=== PATIENT | male | born 1980 | race Hispanic/Latino ===

== ENCOUNTER 2016-09-15 10:16 | Emergency (ER) | payer OTHER ==
[2016-09-15 10:35] VITALS: BP 130/92
--- NOTE | 2016-09-15 10:38 | Emergency Department Report ---
Entered by CHANO PAYNE, acting as scribe for RADHA GOLDSTEIN NP. Chief Complaint: Back Pain/Injury Stated Complaint: FALL/BACK/SHOULDER INJURY/PAIN Time Seen by Provider: 09/15/16 10:32 - HPI History of Present Illness: 36 y/o male presents 02/07, achy, sharp pain on righ shoulder/back after falling skateboarding about a week ago. Pt recieved x-ray at [facility] on left shoulder with normal results post accident. Denies SOB, head trauma. - ROS Review of Systems: -SOB - Exam Vital Signs: Vital Signs 09/15/16 10:32 Temperature 98.2 F Pulse Rate 71 Respiratory 18 Rate Blood Pressure 130/92 O2 Sat by Pulse 97 Oximetry Physical Exam: pt is alert and appropriate. pt does not have post midline C- spine tenderness + thoracic tenderness decrease rom to R shoulder MSE screening note: Focused history and physical exam performed. Due to findings the following was ordered: xr ED Disposition for MSE Condition: Stable This documentation as recorded by the scribe,CHANO PAYNE,accurately reflects the service I personally performed and the decisions made by ANGELITA rueda TRACY M, NP.
--- NOTE | 2016-09-15 11:18 | XRay Report ---
THORACIC SPINE: History: Back pain. The bones are normally mineralized with well preserved vertebral height, alignment and interspace distances. No paraspinal soft tissue widening is noted. IMPRESSION: Unremarkable thoracic spine.
--- NOTE | 2016-09-15 11:18 | XRay Report ---
RIGHT SHOULDER: History: Pain. Routine views demonstrate normal bony and soft tissue structures with normal joint alignment of the shoulder. IMPRESSION: Normal study.
--- NOTE | 2016-09-15 11:45 | Emergency Department Report ---
ED Back Pain/Injury HPI - General Chief Complaint: Fall Stated Complaint: FALL/BACK/SHOULDER INJURY/PAIN Time Seen by Provider: 09/15/16 10:32 Source: patient Limitations: No Limitations - History of Present Illness Initial Comments: This is a 36-year-old male that presents with back pain and radiates 9 out of 10. Patient describes pain as achy, sharp pain that radiates to his shoulder status post fall from skateboard and that occurred last week. Patient denies any trauma to head. He is complaining of severe neck pain. Patient stated is unable to move his neck while driving. Denies any loss of consciousness. Denies any numbness or tingling in the extremities. Patient stated receive an x -ray at [facility] for the left shoulder with normal results. Patient denies any chest pain or shortness of breath at this time. Patient does not seem toxic or ill appearance. Patient stated that he is able to move the extremities with slight pain to the area. is present this time of visit. Patient denies any post-line C-spine tenderness. Patient does complain of slight thoracic tenderness. Patient stating has been taking Flexeril that was prescribed in [place] with slight improvement. MD Complaint: back pain -: Gradual, week(s) (1) Similar Symptoms Previously: Yes Place: other (outside) Radiation: other (right shoulder) Severity: moderate Severity scale (0 -10): 9 Quality: aching Consistency: constant Improves With: medication (OTC NSAIDs) Worsens With: movement Context: while lifting Associated Symptoms: denies other symptoms. denies: confusion, weakness, chest pain, numbness, difficulty walking, cough, difficulty urinating, diaphoresis, incontinence, fever/chills, constipation, headaches, abdominal pain, loss of appetite, malaise, nausea/vomiting, rash, seizure, shortness of breath, syncope - Related Data Home Medications Medication Instructions Recorded Confirmed Last Taken Motrin 800 MG tab 800 mg PO BID 12/26/15 09/15/16 Unknown Previous Rx's Medication Instructions Recorded Last Taken Type Prednisone [predniSONE] 40 mg PO QDAY 5 Days 09/15/16 Unknown Rx traMADol [Ultram] 50 mg PO Q6HR PRN #20 tablet 09/15/16 Unknown Rx Allergies Allergy/AdvReac Type Severity Reaction Status Date / Time No Known Allergies Allergy Verified 09/15/16 10:36 ED Review of Systems ROS: Stated complaint: FALL/BACK/SHOULDER INJURY/PAIN Other details as noted in HPI Constitutional: denies: chills, fever Eyes: denies: eye pain, eye discharge, vision change ENT: denies: ear pain, throat pain Respiratory: denies: cough, shortness of breath, wheezing Cardiovascular: denies: chest pain, palpitations Endocrine: no symptoms reported Gastrointestinal: denies: abdominal pain, nausea, diarrhea Genitourinary: denies: urgency, dysuria Musculoskeletal: denies: back pain, joint swelling, arthralgia Skin: denies: rash, lesions Neurological: denies: headache, weakness, paresthesias Psychiatric: denies: anxiety, depression Hematological/Lymphatic: denies: easy bleeding, easy bruising ED Past Medical Hx - Past Medical History Previous Medical History?: No - Surgical History Hx Appendectomy: Yes - Social History Smoking Status: Never Smoker Substance Use Type: Alcohol - Medications Home Medications: Home Medications Medication Instructions Recorded Confirmed Last Taken Type Motrin 800 MG tab 800 mg PO BID 12/26/15 09/15/16 Unknown History Prednisone [predniSONE] 40 mg PO QDAY 5 Days 09/15/16 Unknown Rx traMADol [Ultram] 50 mg PO Q6HR PRN #20 tablet 09/15/16 Unknown Rx ED Physical Exam - General Limitations: No Limitations General appearance: alert, in no apparent distress - Head Head exam: Present: atraumatic, normocephalic - Eye Eye exam: Present: normal appearance - ENT ENT exam: Present: mucous membranes moist - Neck Neck exam: Present: normal inspection, tenderness (cervical region). Absent: meningismus, full ROM (experiences pain out of 10/10 while turning his neck from left to right.), lymphadenopathy, thyromegaly - Respiratory Respiratory exam: Present: normal lung sounds bilaterally. Absent: respiratory distress - Cardiovascular Cardiovascular Exam: Present: regular rate, normal rhythm. Absent: systolic murmur, diastolic murmur, rubs, gallop - GI/Abdominal GI/Abdominal exam: Present: soft, normal bowel sounds - Rectal Rectal exam: Present: deferred - Extremities Exam Extremities exam: Present: normal inspection, full ROM (with slight pain of the right shoulder), tenderness (right shoulder), normal capillary refill. Absent: pedal edema, joint swelling, calf tenderness - Expanded Upper Extremity Exam Right General: Present: normal inspection. Absent: laceration, abrasion, avulsion Shoulder Exam: Present: normal inspection, full ROM (with slight pain), tenderness. Absent: swelling, abrasion, laceration, deformity, crepidus, tenderness over AC joint Upper Arm exam: Present: normal inspection, full ROM. Absent: tenderness, swelling, abrasion, laceration, deformity, crepidus Elbow exam: Present: normal inspection, full ROM. Absent: tenderness, swelling , abrasion, laceration, deformity, crepidus, effusion, pain w/ pronation/ supination, tenderness over radial head Forearm Wrist exam: Present: normal inspection, full ROM. Absent: tenderness, swelling, abrasion, laceration, deformity Hand Wrist exam: Present: normal inspection, full ROM. Absent: tenderness, swelling, laceration Neuro motor exam: Present: wrist extension intact, thumb opposition intact, thumb IP flexion intact, thumb adduction intact, fingers 2-5 abduction intact Neurosensory exam: Present: 2-point discrimination, radial nerve intact, ulnar nerve intact, median nerve intact Vascular: Present: normal capillary refill - Back Exam Back exam: Present: normal inspection, full ROM, tenderness (thoracic). Absent : CVA tenderness (R), CVA tenderness (L) - Neurological Exam Neurological exam: Present: alert, oriented X3, CN II-XII intact - Psychiatric Psychiatric exam: Present: normal affect, normal mood - Skin Skin exam: Present: warm, dry, intact, normal color. Absent: rash ED Course Vital Signs 09/15/16 10:32 Temperature 98.2 F Pulse Rate 71 Respiratory 18 Rate Blood Pressure 130/92 O2 Sat by Pulse 97 Oximetry - Reevaluation(s) Reevaluation #1: 09/15/16 12:00 Patient patient stated still severe pain 9 out of 10. Patient is unable to move or turn his neck. Reevaluation #2: 09/15/16 13:03 Patient stated pain is much better 4 out of a 10. Patient stated does not want a sling because he received it from [facility] ED Medical Decision Making - Medical Decision Making Ed course: A 69-year-old male that presents with neck and back and shoulder pain status post fall last week. 1- Patient received Ultram 50 mg by mouth. Patient still severe pain 9/10. 2- is resent with the patient and stated that this is very severe pain for him as his pain threshold is very high. 3- x-ray of thoracic spine. Unremarkable thoracic spine. No paraspinal soft tissue widening is noted. 4- CT of C-spine ordered. Read by Dr. Madrigal. Unremarkable CT of cervical spine. No acute process is noted. 5-Gdbu-[id number] 40 IM 6- I discharged the patient with prednisone 40 mg by mouth 5 days and Ultram by mouth. Instructed the patient not to use heavy machinery while taking Ultram. 7- Patient does not seem toxic or ill appearance. No signs of any distress. 8- patient agrees to treatment plan and stated will follow-up with the orthopedic doctor for possible MRI in 3-5 days. 9-patient stated has a sling and really does not need one now. Critical care attestation.: If time is entered above; I have spent that time in minutes in the direct care of this critically ill patient, excluding procedure time. ED Disposition Clinical Impression: Cervical radiculopathy Shoulder pain, acute Qualifiers: Laterality: right Qualified Code(s): M25.511 - Pain in right shoulder Lumbar strain Qualifiers: Encounter type: initial encounter Qualified Code(s): S39.012A - Strain of muscle, fascia and tendon of lower back, initial encounter Disposition: DISCHARGED TO HOME OR SELFCARE Is pt being admited?: No Does the pt Need Aspirin: No Condition: Stable Instructions: Tramadol (By mouth), Cervical Radiculopathy (ED), Back Pain (ED) Additional Instructions: Please follow up with the orthopedic doctor in 3-5 days, as you may need a MRI.. If symptoms worsen this before back to emergency room. Do not use heavy machinery while taking Ultram. Prescriptions: Prednisone [predniSONE] 40 mg PO QDAY 5 Days traMADol [Ultram] 50 mg PO Q6HR PRN #20 tablet PRN Reason: Pain Referrals: PRIMARY MD NIEVES [Primary Care Provider] - 3-5 Days LETA CUI MD [Staff Physician] - 3-5 Days Forms: Work/School Release Form(ED)
[2016-09-15] MEDS ORDERED: ULTRAM PO ONE (11:46)
--- NOTE | 2016-09-15 12:40 | Cat Scan Report ---
CT SCAN OF THE CERVICAL SPINE: HISTORY: Neck pain, tenderness. TECHNIQUE: Contiguous 1.25 mm axial images of the cervical spine were obtained. Sagittal and coronal reformatted images. FINDINGS: There is normal alignment of the cervical spine. The body, pedicles and posterior ligaments appear normal. No evidence of fracture or subluxation is seen. The spinal canal appears normal. The prevertebral soft tissues appear normal. IMPRESSION: Unremarkable CT of the cervical spine. No acute process is noted.
== END 2016-09-15 13:21 | disposition home or self-care (01) ==
LOC: ED 10:16
DX: S39.012A Strain of muscle, fascia and tendon of lower back, initial encounter (principal); M54.12 Radiculopathy, cervical region; M25.511 Pain in right shoulder; W19.XXXA Unspecified fall, initial encounter; Y93.89 Activity, other specified; Y99.9 Unspecified external cause status; Y92.89 Other specified places as the place of occurrence of the external cause
CPT/HCPCS: 72070; 72125; 73030; 96374; 99284; J2920